=== PATIENT | female | born 1990 | race Hispanic/Latino ===

== ENCOUNTER 2017-10-18 16:56 | Emergency (ER) | payer BC ==
[2017-10-18] MEDS ORDERED: Sodium Chloride 0.9% 1,000 ML IV STA (17:17)
--- NOTE | 2017-10-18 17:34 | ED PDOC ---
History of Present Illness History of Present Illness: Ms. Davis is a 26 year old female, with a history of thyroid disorder, who presents to the ED with flu-like symptoms since yesterday. Patient states started with sore throat, body aches and fatigue. This morning with fever and pain with deep inspiration. Denies urinary symptoms, syncope, swelling, vomiting or diarrhea. Patient was sent by Dr. Chavez (PCP). PMD: Norman Chavez HPI: Influenza Time Seen by Provider: 10/18/17 17:12 Chief Complaint: Flu-like Symptoms Chief Complaint (Provider): Flu-like Symptoms History Per: Patient Exam Limitations: no limitations Onset/Duration Of Symptoms: Days (x yesterday) Past Medical History Reviewed: Historical Data, Nursing Documentation, Vital Signs Vital Signs: Last Vital Signs Temp 99.2 F 10/18/17 17:06 Pulse 74 10/18/17 17:06 Resp 18 10/18/17 17:06 BP 115/79 10/18/17 17:06 Pulse Ox 99 10/18/17 17:06 - Medical History PMH: Hypothyroidism - Surgical History Surgical History: No Surg Hx - Family History Family History: States: Unknown Family Hx - Social History Current smoker - smoking cessation education provided: No Alcohol: None Drugs: Denies - Home Medications Home Medications: Ambulatory Orders Medication Instructions Recorded Azithromycin [Zithromax] 250 mg PO DAILY #6 tab 10/18/17 Ibuprofen [Motrin Tab] 600 mg PO Q6 PRN #15 tab 10/18/17 Oseltamivir [Tamiflu] 75 mg PO BID #10 cap 10/18/17 - Allergies Allergies/Adverse Reactions: Allergies Allergy/AdvReac Type Severity Reaction Status Date / Time No Known Allergies Allergy Verified 10/18/17 17:05 Review of Systems ROS Statement: Except As Marked, All Systems Reviewed And Found Negative Constitutional: Positive for: Fever, Malaise, Other (Body aches, Fatigue) ENT: Positive for: Throat Pain Respiratory: Positive for: Other (Pain with deep inspiration) Gastrointestinal: Negative for: Vomiting, Abdominal Pain, Diarrhea Genitourinary Female: Negative for: Dysuria, Hematuria Musculoskeletal: Negative for: Neck Pain Skin: Negative for: Rash Neurological: Positive for: Headache. Negative for: Other (syncope) Physical Exam - Reviewed Nursing Documentation Reviewed: Yes Vital Signs Reviewed: Yes - Physical Exam Appears: Negative for: Well ((+): Appears fatigue) Head Exam: Positive for: ATRAUMATIC, NORMAL INSPECTION, NORMOCEPHALIC Skin: Positive for: Pallor (Mild skin) Eye Exam: Positive for: Normal appearance, EOMI, PERRL ENT: Positive for: Normal ENT Inspection Neck: Positive for: Normal Cardiovascular/Chest: Positive for: Regular Rate, Rhythm Respiratory: Positive for: Normal Breath Sounds. Negative for: Respiratory Distress Gastrointestinal/Abdominal: Positive for: Normal Exam Back: Positive for: Normal Inspection Extremity: Positive for: Normal ROM. Negative for: Deformity Neurologic/Psych: Positive for: Alert, Oriented (x 3). Negative for: Motor/ Sensory Deficits Medical Decision Making Medical Decision Making: Work up for flu-like symptoms and complication of flu. Time: 17:17 Plan: - EKG - BNP - CMP - Total Creatinine Kinase - TSH - Troponin I - cbc - chest x-ray - sodium chloride 0.9% 1,000 ml iv 1,000 mls/hr - Toradol 15 mg IVP ONCE - Tylenol 325 mg PO - Influenza A/B Troponin I Reveals < 0.0120 ng/mL [within range] TSH 3rd Gen Reveals 0.57 mIU/ML [within range] Given classic symptoms of flu, treat empiric for flu w tamiflu. D/w Dr Chavez, also requested azithromycin. EKG changes d/w Dr Chavez also relayed to patient and parents. Copy given to parents. Given lack of active chest pain, no SOB, normal HR, no hypoxia, normotension, normal heart size on CXR, no infiltrate stable for outpatient treatment and followup. Will see Dr Scott he for echo. Indications for return to ER discussed. On re-eval 810p texting on phone, no distress. work note provided. Scribe Attestation: Documented by Mauricio Perez, acting as a scribe for Cash Orellana MD Provider Scribe Attestation: All medical record entries made by the Scribe were at my direction and personally dictated by me. I have reviewed the chart and agree that the record accurately reflects my personal performance of the history, physical exam, medical decision making, and the department course for this patient. I have also personally directed, reviewed, and agree with the discharge instructions and disposition. - Laboratory Results Result Diagrams: 10/18/17 17:30 10/18/17 17:30 Urine POC: Negative - ECG O2 Sat by Pulse Oximetry: 99 (RA) Pulse Ox Interpretation: Normal Disposition - Clinical Impression Clinical Impression: Influenza-like symptoms - Patient ED Disposition Is Patient to be Admitted: No Counseled Patient/Family Regarding: Studies Performed, Diagnosis, Need For Followup, Rx Given - Disposition Referrals: Norman Chavez MD [Family Provider] - Disposition: Routine/Home Disposition Time: 20:10 Condition: STABLE Additional Instructions: See Dr Chavez in office for further testing of abnormal EKG. Return to ER for any shortness of breath, chest pain, dizziness or swelling. Take medications as directed. Drink plenty of fluids. Prescriptions: Azithromycin [Zithromax] 250 mg PO DAILY #6 tab Ibuprofen [Motrin Tab] 600 mg PO Q6 PRN #15 tab PRN Reason: Pain, Moderate (4-7) Oseltamivir [Tamiflu] 75 mg PO BID #10 cap Instructions: Flu, Adult (DC) Forms: [facility] ED School/Work Excuse
[2017-10-18 17:39] LABS: BASO % 0.6 % (0.0-2.0); EOS # 0.1 K/uL (0.0-0.7); EOS % 2.1 % (0.0-4.0); HEMOGLOBIN 13.1 g/dL (12.0-16.0); LYMPH # 0.6 K/uL (1.0-4.3); MEAN CELL VOLUME 85.3 fl (81.0-99.0); MEAN CORPUSCULAR HEMOGLOBIN 28.3 pg (27.0-31.0); MEAN CORPUSCULAR HGB CONC 33.2 g/dL (33.0-37.0); MEAN PLATELET VOLUME 7.7 fl (7.2-11.7); MONO # 0.8 K/uL (0.0-0.8); MONO % 13.9 % (0.0-10.0); NEUT # 4.4 K/uL (1.8-7.0); NEUT % 73.4 % (50.0-75.0); RBC 4.62 Mil/uL (3.80-5.20); RED CELL DISTRIBUTION WIDTH 15.4 % (11.5-14.5)
[2017-10-18 18:07] LABS: ALB/GLOB RATIO 1.2 (1.0-2.1); ALBUMIN 4.3 g/dL (3.5-5.0); ALT/SGPT 25 U/L (9-52); AST/SGOT 19 U/L (14-36); BLOOD UREA NITROGEN 12 mg/dl (7-17); CALCIUM 9.4 mg/dL (8.4-10.2); GFR AFRICAN-AMERICAN > 60; GFR NON-AFRICAN AMERICAN > 60
[2017-10-18 18:08] LABS: B-TYPE NATRIURETIC PEPTIDE 92.5 pg/ml (0-450)
[2017-10-18 19:14] LABS: SQUAMOUS EPITHIAL 3 /hpf (0-5); URINE BACTERIA RARE (<OCC); URINE BILIRUBIN NEGATIVE (NEGATIVE); URINE BLOOD MODERATE (NEGATIVE); URINE CLARITY SLIGHTY-CLOUDY (Clear); URINE COLOR YELLOW (YELLOW); URINE GLUCOSE (UA) NEG (Normal); URINE LEUKOCYTE ESTERASE NEG Leu/uL (Negative); URINE PROTEIN NEGATIVE (NEGATIVE); URINE UROBILINOGEN 0.2-1.0 mg/dL (0.2-1.0)
[2017-10-18 20:19] VITALS: BP 108/69; PULSE 64; RESP 20; TEMP 98.5; O2SAT 100
--- NOTE | 2017-10-19 11:44 | CARD ---
APPROVED REPORT EKG Measurement Heart [id number] <Conclusion> Sinus rhythm with short RI Nonspecific T wave abnormality Abnormal ECG
== END 2017-10-18 20:20 | disposition home or self-care (01) ==
LOC: H.ER 16:56
DX: J11.1 Influenza due to unidentified influenza virus with other respiratory manifestations (principal); E03.9 Hypothyroidism, unspecified
CPT/HCPCS: 71046; 80053; 81003; 81025; 82550; 83880; 84443; 84484; 85025; 87804; 93005; 96361; 96374; 99283; J1885; J7040

== ENCOUNTER 2017-10-21 00:02 | Emergency (ER) | payer BC ==
[2017-10-21 00:39] VITALS: RESP 18; O2SAT 100
[2017-10-21] MEDS ORDERED: Promethazine 25 MG in Sodium Chloride 0.9% 50 ML IVPB ONE (01:01)
[2017-10-21 01:24] LABS: BASO # 0.1 K/uL (0.0-0.2); BASO % 0.6 % (0.0-2.0); EOS # 0.2 K/uL (0.0-0.7); EOS % 2.3 % (0.0-4.0); HEMOGLOBIN 13.3 g/dL (12.0-16.0); LYMPH # 1.9 K/uL (1.0-4.3); LYMPH % 19.4 % (20.0-40.0); MEAN CELL VOLUME 85.3 fl (81.0-99.0); MEAN CORPUSCULAR HEMOGLOBIN 28.3 pg (27.0-31.0); MEAN CORPUSCULAR HGB CONC 33.1 g/dL (33.0-37.0); MONO # 0.8 K/uL (0.0-0.8); MONO % 8.4 % (0.0-10.0); NEUT # 6.7 K/uL (1.8-7.0); NEUT % 69.3 % (50.0-75.0); RBC 4.72 Mil/uL (3.80-5.20); RED CELL DISTRIBUTION WIDTH 15.5 % (11.5-14.5); WHITE BLOOD COUNT 9.6 K/uL (4.8-10.8)
--- NOTE | 2017-10-21 01:40 | ED PDOC ---
HPI: Abdomen Time Seen by Provider: 10/21/17 00:52 Chief Complaint (Nursing): GI Problem History Per: Patient History/Exam Limitations: no limitations Onset/Duration Of Symptoms: Hrs (x 8 ) Current Symptoms Are (Timing): Still Present Location Of Pain/Discomfort: Epigastric Quality Of Discomfort: "Pain" Associated Symptoms: Nausea, Vomiting Additional Complaint(s): 26 year old female with no medical history presents to the ED with epigastric pain, associated nausea and vomiting, and a headache since 18:00 last night. Patient reports she was recently started on Azithromycin and Tamiflu for treatment of flu like illness. She states she was feeling better today at Dr. Chavez's office with some nausea still present. Patient was told to go to ED if symptoms worsen. She also complains of a throbbing headache, not maximum at onset and not "thunderclap". PMD: Dr. Norman Francisco MD Past Medical History Reviewed: Historical Data, Nursing Documentation, Vital Signs Vital Signs: Last Vital Signs Temp 98.0 F 10/21/17 00:36 Pulse 91 H 10/21/17 00:36 Resp 18 10/21/17 00:36 BP 119/78 10/21/17 00:36 Pulse Ox 100 10/21/17 01:50 - Medical History PMH: Hypothyroidism - Family History Family History: States: Unknown Family Hx - Home Medications Home Medications: Ambulatory Orders Medication Instructions Recorded Azithromycin [Zithromax] 250 mg PO DAILY #6 tab 10/18/17 Ibuprofen [Motrin Tab] 600 mg PO Q6 PRN #15 tab 10/18/17 Oseltamivir [Tamiflu] 75 mg PO BID #10 cap 10/18/17 Ondansetron [Zofran] 4 mg PO Q8H #12 tab 10/21/17 - Allergies Allergies/Adverse Reactions: Allergies Allergy/AdvReac Type Severity Reaction Status Date / Time No Known Allergies Allergy Verified 10/21/17 00:39 Review of Systems ROS Statement: Except As Marked, All Systems Reviewed And Found Negative Gastrointestinal: Positive for: Nausea, Vomiting, Abdominal Pain Neurological: Positive for: Headache Physical Exam - Reviewed Nursing Documentation Reviewed: Yes Vital Signs Reviewed: Yes - Physical Exam Appears: Positive for: No Acute Distress Head Exam: Positive for: ATRAUMATIC, NORMOCEPHALIC Skin: Positive for: Normal Color, Warm, Dry Eye Exam: Positive for: EOMI, Normal appearance, PERRL Neck: Positive for: Normal, Painless ROM, Supple Cardiovascular/Chest: Positive for: Regular Rate, Rhythm. Negative for: Murmur Respiratory: Positive for: Normal Breath Sounds. Negative for: Respiratory Distress Gastrointestinal/Abdominal: Positive for: Tenderness (epigastric tenderness to palpation) Back: Positive for: Normal Inspection. Negative for: L CVA Tenderness, R CVA Tenderness Extremity: Positive for: Normal ROM. Negative for: Deformity Neurologic/Psych: Positive for: Alert, Oriented. Negative for: Motor/Sensory Deficits - Laboratory Results Result Diagrams: 10/21/17 01:04 10/21/17 01:04 - ECG O2 Sat by Pulse Oximetry: 100 (RA) Pulse Ox Interpretation: Normal Medical Decision Making Medical Decision Making: Time: 01:00 A/P: 26 year old female with no past medical history presenting with nausea and vomiting after initiation of Zithromax and Tamiflu --Patient is likely suffering a medication side affect or onset of gastroenteritis --Medication for nausea, IV fluids and check lab work --reevaluate Initial Plan: --CMP --lipase --Urine --Urine dip --CBC with differentials --Phenergan Inj 25 mg IVPB --Protonix Inj 40 mg IVP --Urinalysis 430 Patient feeling much better, no longer c/o of nausea or pain, was able to eat crackers and drink fluids without vomiting. Advised to f/u w/ Dr. Chavez. Advised to stop taking tamiflu due to possible medication side effect. Return precautions given. Scribe Attestation: Documented by Meredith Maria acting as a scribe for Rolando Sorensen MD. Scribe Attestation: All medical record entries made by the Scribe were at my direction and personally dictated by me. I have reviewed the chart and agree that the record accurately reflects my personal performance of the history, physical exam, medical decision making, and the department course for this patient. I have also personally directed, reviewed, and agree with the discharge instructions and disposition. Disposition - Clinical Impression Clinical Impression: Vomiting - Disposition Referrals: Norman Chavez MD [Primary Care Provider] - Disposition Time: 04:30 Condition: IMPROVED Prescriptions: Ondansetron [Zofran] 4 mg PO Q8H #12 tab Instructions: Nausea and Vomiting, Adult (DC) Forms: [employer] (Khmer)
[2017-10-21 01:46] LABS: ALB/GLOB RATIO 1.2 (1.0-2.1); ALBUMIN 4.4 g/dL (3.5-5.0); ALT/SGPT 35 U/L (9-52); AST/SGOT 26 U/L (14-36); BLOOD UREA NITROGEN 13 mg/dl (7-17); CALCIUM 9.2 mg/dL (8.4-10.2); GFR AFRICAN-AMERICAN > 60; GFR NON-AFRICAN AMERICAN > 60; LIPASE 27 U/L (23-300)
[2017-10-21 04:49] VITALS: BP 115/74; PULSE 86; TEMP 98.2
== END 2017-10-21 04:48 | disposition home or self-care (01) ==
LOC: H.ER 00:02
DX: R11.0 Nausea (principal); E03.9 Hypothyroidism, unspecified
CPT/HCPCS: 80053; 83690; 85025; 96374; 99283; C9113; J2550

== ENCOUNTER 2017-10-25 18:33 | Observation (INO) | payer BC ==
[2017-10-25] MEDS ORDERED: Sodium Chloride 0.9% 1,000 ML IV STA (19:44)
[2017-10-25 20:02] LABS: BASO # 0.1 K/uL (0.0-0.2); BASO % 0.6 % (0.0-2.0); EOS # 0.3 K/uL (0.0-0.7); EOS % 3.6 % (0.0-4.0); HEMOGLOBIN 13.5 g/dL (12.0-16.0); LYMPH # 2.7 K/uL (1.0-4.3); LYMPH % 32.4 % (20.0-40.0); MEAN CELL VOLUME 84.3 fl (81.0-99.0); MEAN CORPUSCULAR HEMOGLOBIN 27.9 pg (27.0-31.0); MEAN CORPUSCULAR HGB CONC 33.1 g/dL (33.0-37.0); MEAN PLATELET VOLUME 8.1 fl (7.2-11.7); MONO # 0.6 K/uL (0.0-0.8); MONO % 7.3 % (0.0-10.0); NEUT # 4.7 K/uL (1.8-7.0); NEUT % 56.1 % (50.0-75.0); RBC 4.82 Mil/uL (3.80-5.20); RED CELL DISTRIBUTION WIDTH 15.2 % (11.5-14.5); WHITE BLOOD COUNT 8.4 K/uL (4.8-10.8)
[2017-10-25 20:08] LABS: SQUAMOUS EPITHIAL 6 /hpf (0-5); URINE BILIRUBIN NEGATIVE (NEGATIVE); URINE BLOOD NEGATIVE (NEGATIVE); URINE CLARITY SLIGHTY-CLOUDY (Clear); URINE COLOR YELLOW (YELLOW); URINE GLUCOSE (UA) NEG (Normal); URINE LEUKOCYTE ESTERASE NEG Leu/uL (Negative); URINE PROTEIN NEGATIVE (NEGATIVE); URINE UROBILINOGEN 0.2-1.0 mg/dL (0.2-1.0)
[2017-10-25 20:18] LABS: ALT/SGPT 31 U/L (9-52); AST/SGOT 31 U/L (14-36); BLOOD UREA NITROGEN 20 mg/dl (7-17); CALCIUM 9.6 mg/dL (8.4-10.2); GFR AFRICAN-AMERICAN > 60; GFR NON-AFRICAN AMERICAN > 60
[2017-10-25 21:26] LABS: ALB/GLOB RATIO 1.1 (1.0-2.1); ALBUMIN 4.4 g/dL (3.5-5.0)
--- NOTE | 2017-10-25 22:23 | ED PDOC ---
HPI: General Adult Time Seen by Provider: 10/25/17 18:45 Chief Complaint (Nursing): GI Problem Chief Complaint (Provider): GI Problem History Per: Patient History/Exam Limitations: no limitations Onset/Duration Of Symptoms: Other (x1 week) Current Symptoms Are (Timing): Still Present Additional Complaint(s): 26 y/o female with past medical history of hypothyroidism presents to the ED complaining of nausea and vomiting sinc elast Wednesday. This is her third visit since past week for the same complaint. Patient was sent by Dr. Chavez today. Patient report that she is not able to eat anything and is feeling weak. She was only able to tolerate some fluid today. Denies diarrhea, fever or any further medical complaints. PMD: Norman Chavez MD Past Medical History Reviewed: Historical Data, Nursing Documentation, Vital Signs Vital Signs: Last Vital Signs Temp 97.8 F 10/26/17 08:05 Pulse 63 10/26/17 08:05 Resp 18 10/26/17 08:05 BP 115/76 10/26/17 08:05 Pulse Ox 99 10/26/17 08:05 - Medical History PMH: Hypothyroidism - Surgical History Surgical History: No Surg Hx - Family History Family History: States: Unknown Family Hx - Social History Current smoker - smoking cessation education provided: Yes (Current Some Days Smoker) Alcohol: Other (Yes) Drugs: Denies - Home Medications Home Medications: Ambulatory Orders Medication Instructions Recorded Famotidine [Pepcid] 20 mg PO BID 30 Days #60 tab 10/26/17 Mv,Min10/Folic Acid/D3/Ala/Lut 1 tab PO DAILY 30 Days #30 tab 10/26/17 [Strovite One Caplet] - Allergies Allergies/Adverse Reactions: Allergies Allergy/AdvReac Type Severity Reaction Status Date / Time No Known Allergies Allergy Verified 10/25/17 18:48 Review of Systems ROS Statement: Except As Marked, All Systems Reviewed And Found Negative (As per HPI, otherwise negative) Constitutional: Negative for: Fever Gastrointestinal: Positive for: Nausea, Vomiting. Negative for: Diarrhea Physical Exam - Reviewed Nursing Documentation Reviewed: Yes Vital Signs Reviewed: Yes - Physical Exam Appears: Positive for: Non-toxic, No Acute Distress Head Exam: Positive for: ATRAUMATIC, NORMAL INSPECTION, NORMOCEPHALIC Skin: Positive for: Normal Color, Warm, Dry Eye Exam: Positive for: EOMI, Normal appearance, PERRL Neck: Positive for: Normal, Painless ROM, Supple Cardiovascular/Chest: Positive for: Regular Rate, Rhythm. Negative for: Murmur Respiratory: Positive for: Normal Breath Sounds. Negative for: Accessory Muscle Use, Respiratory Distress Gastrointestinal/Abdominal: Positive for: Normal Exam, Soft. Negative for: Tenderness Back: Positive for: Normal Inspection Extremity: Positive for: Normal ROM. Negative for: Deformity Neurologic/Psych: Positive for: Alert, Oriented (x3) - Laboratory Results Result Diagrams: 10/26/17 09:57 10/26/17 09:57 - ECG O2 Sat by Pulse Oximetry: 98 (RA) Pulse Ox Interpretation: Normal Medical Decision Making Medical Decision Making: Time: 21:37 Initial Impression: nausea and vomiting for several days, rule out dehydration Plan: labs urine and reeval --Spoke with Dr. Chavez and he wants to admit her for dehydration. agrees with iv fluids and zofran Scribe Attestation: Documented by Bandar Sweeney acting as a scribe for Aniya Hamilton MD. Scribe Attestation: All medical record entries made by the Scribe were at my direction and personally dictated by me. I have reviewed the chart and agree that the record accurately reflects my personal performance of the history, physical exam, medical decision making, and the department course for this patient. I have also personally directed, reviewed, and agree with the discharge instructions and disposition. Disposition - Clinical Impression Clinical Impression: Gastroenteritis - Patient ED Disposition Is Patient to be Admitted: Yes - Disposition Disposition Time: 20:00 Condition: STABLE
[2017-10-25] MEDS: Dextrose 5%/0.9% NS 1,000 ML IV SCH (23:24)
--- NOTE | 2017-10-25 23:27 | US ---
EXAM: US Abdomen Complete CLINICAL HISTORY: 26 years old, female; Pain; Abdominal pain; Epigastric; Additional info: Gb stones TECHNIQUE: Real-time ultrasound of the abdomen (complete) with image documentation. COMPARISON: No relevant prior studies available. FINDINGS: Liver: Unremarkable measuring 16.7 cm. No mass. No intrahepatic bile duct dilation. Gallbladder: The gallbladder is contracted. No gallstones. Negative sonographic Cerna's sign. Common bile duct: Unremarkable as visualized measuring 3 mm. No stones. No dilation. Pancreas: Unremarkable as visualized. Kidneys: Unremarkable. The RIGHT kidney measures 11.6 cm and the LEFT kidney measures 1.3 cm. No stones. No solid mass. No hydronephrosis. Spleen: Unremarkable measuring 9.6 cm. No splenomegaly. Aorta: Unremarkable. No aneurysm. Inferior vena cava: Unremarkable. IMPRESSION: No acute findings.
--- NOTE | 2017-10-25 23:32 | US ---
EXAM: US Pelvis Complete, Transabdominal CLINICAL HISTORY: 26 years old, female; Pain; Pelvic pain; Additional info: Microhematuria TECHNIQUE: Real-time transabdominal pelvic ultrasound (complete) with image documentation. COMPARISON: No relevant prior studies available. FINDINGS: Uterus/cervix: Unremarkable measuring 7.3 x 4.0 x 4.6 cm. The endometrial stripe thickness is 8 mm. No myometrial mass. Right ovary: The RIGHT ovary measures 3.7 x 1.9 x 2.2 cm. There is a dominant follicle in the RIGHT ovary measuring 1.7 x 1.1 x 1.2 cm. No mass. Normal blood flow. Left ovary: Unremarkable measuring 2.8 x 1.5 x 2.6 cm. No mass. Normal blood flow. Free fluid: No free fluid. Bladder: Unremarkable as visualized. Wall is normal thickness for degree of distention. IMPRESSION: Unremarkable pelvic ultrasound.
[2017-10-26 00:13] LABS: PROTHROMBIN TIME 10.7 Seconds (9.8-13.1)
[2017-10-26 00:14] LABS: PARTIAL THROMBOPLASTIN TIME 34.6 Seconds (25.6-37.1)
[2017-10-26 00:58] VITALS: RESP 18; TEMP 97.8
[2017-10-26] MEDS: Dextrose 5%/0.9% NS 1,000 ML IV SCH ×2 (07:16→08:49)
[2017-10-26 08:06] VITALS: BP 115/76; PULSE 63
--- NOTE | 2017-10-26 09:14 | RAD ---
HISTORY: asthma COMPARISON: Chest radiographs 10/18/2017 TECHNIQUE: Chest PA and lateral FINDINGS: LUNGS: No active pulmonary disease. PLEURA: No significant pleural effusion identified. No pneumothorax apparent. CARDIOVASCULAR: Normal. OSSEOUS STRUCTURES: No significant abnormalities. VISUALIZED UPPER ABDOMEN: Normal. OTHER FINDINGS: None. IMPRESSION: No interval acute cardiopulmonary disease appreciated.
[2017-10-26 10:15] LABS: BASO # 0.1 K/uL (0.0-0.2); BASO % 0.9 % (0.0-2.0); EOS # 0.4 K/uL (0.0-0.7); EOS % 5.7 % (0.0-4.0); HEMOGLOBIN 12.2 g/dL (12.0-16.0); LYMPH # 2.4 K/uL (1.0-4.3); LYMPH % 34.4 % (20.0-40.0); MEAN CELL VOLUME 85.2 fl (81.0-99.0); MEAN CORPUSCULAR HEMOGLOBIN 28.1 pg (27.0-31.0); MEAN PLATELET VOLUME 8.2 fl (7.2-11.7); MONO # 0.6 K/uL (0.0-0.8); MONO % 8.7 % (0.0-10.0); NEUT # 3.5 K/uL (1.8-7.0); NEUT % 50.3 % (50.0-75.0); RBC 4.34 Mil/uL (3.80-5.20); RED CELL DISTRIBUTION WIDTH 15.3 % (11.5-14.5); WHITE BLOOD COUNT 6.9 K/uL (4.8-10.8)
[2017-10-26 10:20] LABS: BLOOD UREA NITROGEN 16 mg/dl (7-17); CALCIUM 8.7 mg/dL (8.4-10.2); GFR AFRICAN-AMERICAN > 60; GFR NON-AFRICAN AMERICAN > 60
--- NOTE | 2017-10-26 14:21 | CP.PCM.HP ---
History of Present Illness - History of Present Illness History of Present Illness: 26 y/o with hx of asthma presented in ER with nausea,vomiting, general malaise, vertigo, fever, chills and sign of dehydration. Patient was seen in ER two times in one week and dc home. She was admitted on obs for further dx and rx. During the hospitalization she was hydrated and no significant pathologic findings were discovered. At present she is well no c/o. ECHO pending. Will dc home and follow as OP. Rest for 10 days. Patient and family educated. F/U with cardiology as scheduled. Present on Admission - Present on Admission Any Indicators Present on Admission: No Review of Systems - Constitutional Constitutional: Malaise - EENT Eyes: As Per HPI Nose/Mouth/Throat: As Per HPI - Cardiovascular Cardiovascular: As Per HPI - Respiratory Respiratory: As Per HPI - Gastrointestinal Gastrointestinal: Nausea, Vomiting - Genitourinary Genitourinary: As Per HPI - Musculoskeletal Musculoskeletal: As Per HPI - Integumentary Integumentary: As Per HPI - Neurological Neurological: As Per HPI - Psychiatric Psychiatric: As Per HPI Past Patient History - Past Social History Smoking Status: Never Smoked - ENDOCRINE/METABOLIC Hx Hypothyroidism: Yes - MUSCULOSKELETAL/RHEUMATOLOGICAL Hx Falls: No - PSYCHIATRIC Hx Substance Use: No - ANESTHESIA Hx Anesthesia: No Hx Anesthesia Reactions: No Hx Malignant Hyperthermia: No Has any member of the family had a problem w/ anesthesia?: No Meds Home Medications: Home Medication List Medication Instructions Recorded Confirmed Type Famotidine [Pepcid] 20 mg PO BID 30 Days #60 tab 10/26/17 Rx Mv,Min10/Folic Acid/D3/Ala/Lut 1 tab PO DAILY 30 Days #30 tab 10/26/17 Rx [Strovite One Caplet] Allergies/Adverse Reactions: Allergies Allergy/AdvReac Type Severity Reaction Status Date / Time No Known Allergies Allergy Verified 10/25/17 18:48 Physical Exam - Constitutional Appears: Well - Head Exam Head Exam: ATRAUMATIC, NORMAL INSPECTION, NORMOCEPHALIC - Eye Exam Eye Exam: Normal appearance - ENT Exam ENT Exam: Mucous Membranes Moist - Neck Exam Neck exam: Positive for: Normal Inspection - Respiratory Exam Respiratory Exam: Clear to Auscultation Bilateral - Cardiovascular Exam Cardiovascular Exam: REGULAR RHYTHM, +S1, +S2 - GI/Abdominal Exam GI & Abdominal Exam: Normal Bowel Sounds, Soft - Extremities Exam Extremities exam: Positive for: normal inspection - Neurological Exam Neurological exam: Alert, CN II-XII Intact, Normal Gait, Oriented x3 - Psychiatric Exam Psychiatric exam: Normal Affect - Skin Skin Exam: Normal Color Results - Vital Signs Recent Vital Signs: Last Vital Signs Temp 97.8 F 10/26/17 08:05 Pulse 63 10/26/17 08:05 Resp 18 10/26/17 08:05 BP 115/76 10/26/17 08:05 Pulse Ox 99 10/26/17 08:05 - Labs Result Diagrams: 10/26/17 09:57 10/26/17 09:57 Labs: Laboratory Results - last 24 hr 10/25/17 10/25/17 10/25/17 19:55 19:55 19:55 WBC 8.4 RBC 4.82 Hgb 13.5 Hct 40.7 MCV 84.3 MCH 27.9 MCHC 33.1 RDW 15.2 H Plt Count 288 MPV 8.1 Neut % (Auto) 56.1 Lymph % (Auto) 32.4 [place] % (Auto) 7.3 Eos % (Auto) 3.6 Baso % (Auto) 0.6 Neut # (Auto) 4.7 Lymph # (Auto) 2.7 [place] # (Auto) 0.6 Eos # (Auto) 0.3 Baso # (Auto) 0.1 ESR PT INR APTT Sodium 147 Potassium 3.8 Chloride 101 Carbon Dioxide 29 Anion Gap 21 H BUN 20 H Creatinine 1.1 Est GFR ( Amer) > 60 Est GFR (Non-Af Amer) > 60 Random Glucose 77 Calcium 9.6 Total Bilirubin 0.5 AST 31 ALT 31 Alkaline Phosphatase 60 Total Protein 8.2 Albumin 4.4 Globulin 3.9 Albumin/Globulin Ratio 1.1 Amylase Lipase Vitamin B12 Urine Color Yellow Urine Clarity Slighty-cloudy Urine pH 6.0 Ur Specific [place] 1.010 Urine Protein Negative Urine Glucose (UA) Neg Urine Ketones Negative Urine Blood Negative Urine Nitrate Negative Urine Bilirubin Negative Urine Urobilinogen 0.2-1.0 Ur Leukocyte Esterase Neg Urine RBC (Auto) 2 Urine Microscopic WBC 1 Ur Squamous Epith Cells 6 H HIV-1 Ab Rapid Screen 10/25/17 10/25/17 10/25/17 23:20 23:20 23:20 WBC RBC Hgb Hct MCV MCH MCHC RDW Plt Count MPV Neut % (Auto) Lymph % (Auto) [place] % (Auto) Eos % (Auto) Baso % (Auto) Neut # (Auto) Lymph # (Auto) [place] # (Auto) Eos # (Auto) Baso # (Auto) ESR 23 H PT 10.7 INR 1.0 APTT 34.6 Sodium Potassium Chloride Carbon Dioxide Anion Gap BUN Creatinine Est GFR ( Amer) Est GFR (Non-Af Amer) Random Glucose Calcium Total Bilirubin AST ALT Alkaline Phosphatase Total Protein Albumin Globulin Albumin/Globulin Ratio Amylase 82 Lipase 56 Vitamin B12 297 Urine Color Urine Clarity Urine pH Ur Specific [place] Urine Protein Urine Glucose (UA) Urine Ketones Urine Blood Urine Nitrate Urine Bilirubin Urine Urobilinogen Ur Leukocyte Esterase Urine RBC (Auto) Urine Microscopic WBC Ur Squamous Epith Cells HIV-1 Ab Rapid Screen 10/25/17 10/26/17 10/26/17 23:20 09:57 09:57 WBC 6.9 RBC 4.34 Hgb 12.2 Hct 37.0 MCV 85.2 MCH 28.1 MCHC 33.0 RDW 15.3 H Plt Count 230 MPV 8.2 Neut % (Auto) 50.3 Lymph % (Auto) 34.4 [place] % (Auto) 8.7 Eos % (Auto) 5.7 H Baso % (Auto) 0.9 Neut # (Auto) 3.5 Lymph # (Auto) 2.4 [place] # (Auto) 0.6 Eos # (Auto) 0.4 Baso # (Auto) 0.1 ESR PT INR APTT Sodium 145 Potassium 3.7 Chloride 108 H Carbon Dioxide 23 Anion Gap 18 BUN 16 Creatinine 1.0 Est GFR ( Amer) > 60 Est GFR (Non-Af Amer) > 60 Random Glucose 115 H Calcium 8.7 Total Bilirubin AST ALT Alkaline Phosphatase Total Protein Albumin Globulin Albumin/Globulin Ratio Amylase Lipase Vitamin B12 Urine Color Urine Clarity Urine pH Ur Specific [place] Urine Protein Urine Glucose (UA) Urine Ketones Urine Blood Urine Nitrate Urine Bilirubin Urine Urobilinogen Ur Leukocyte Esterase Urine RBC (Auto) Urine Microscopic WBC Ur Squamous Epith Cells HIV-1 Ab Rapid Screen Non reactive Assessment & Plan (1) Post viral debility Status: Acute (2) Post viral syndrome Status: Acute (3) Influenza-like symptoms Status: Acute (4) Vomiting Status: Acute (5) Nausea Status: Acute - Assessment and Plan (Free Text) Plan: Will dc home Rest F/U with PMD in 1 week
[2017-10-26 16:52] LABS: HEPATITIS B SURFACE AG Negative (NEGATIVE)
[2017-10-26 16:58] LABS: HEPATITIS A IGM NEGATIVE (NEGATIVE); HEPATITIS B CORE AB NEGATIVE (NEGATIVE)
[2017-10-26 17:09] LABS: HEPATITIS C ANTIBODY NEGATIVE (NEGATIVE)
[2017-10-26 17:26] LABS: FOLATE 7.3 ng/mL
[2017-10-27 08:34] VITALS: O2SAT 98
== END 2017-10-26 16:00 | disposition home or self-care (01) ==
LOC: H.ER 18:33 → H.ERHOLD 20:59 → H.MEDSURG1 10-26 00:46
PROVIDERS: ADMIT Internal Medicine; ATTEND Internal Medicine
DX: E86.0 Dehydration (principal); R53.81 Other malaise; G93.3 Postviral and related fatigue syndromes; R11.2 Nausea with vomiting, unspecified; E03.9 Hypothyroidism, unspecified; F17.200 Nicotine dependence, unspecified, uncomplicated; J45.909 Unspecified asthma, uncomplicated
CPT/HCPCS: 36415; 71046; 76700; 76856; 80048; 80053; 80074; 81003; 81025; 82150; 82607; 82746; 83520; 83690; 85025; 85610; 85651; 85730; 86039; 86592; 86665; 87086; 87390; 96361; 96374; 96376; 99284; G0378; J7040; J7042